=== PATIENT | female | born 2000 | race Hispanic/Latino ===

== ENCOUNTER 2022-04-26 20:52 | Emergency (ER) | payer OTHER ==
[~2022-04-26] VITALS: Ht 157.5 cm; Wt 62.1 kg
[2022-04-26 21:49] LABS: APPEARANCE,URINE CLEAR (CLEAR); BILIRUBIN,URINE NEGATIVE (NEGATIVE); COLOR,URINE YELLOW (YELLOW); GLUCOSE, URINE (UA) NEGATIVE (NEGATIVE); KETONES,URINE NEGATIVE (NEGATIVE); LEUKOCYTE ESTERASE ,URINE NEGATIVE (NEGATIVE); NITRATE,URINE NEGATIVE (NEGATIVE); OCCULT BLOOD,URINE NEGATIVE (NEGATIVE); PROTEIN,URINE NEGATIVE (NEGATIVE); UROBILINOGEN,URINE 0.2 mg/dL (0.2-1.0)
[2022-04-26 21:50] LABS: HCG,QUALITATIVE URINE NEGATIVE (NEGATIVE)
[2022-04-26] MEDS ORDERED: ONDANSETRON ODT 4MG TAB SL ONE (22:00)
[2022-04-26] MEDS ORDERED: IBUPROFEN 600 MG TABLET PO ONE (22:00)
[2022-04-26 22:12] VITALS: BP 128/84
[2022-04-26] MEDS ORDERED: ONDA4TAB10 PO (23:05)
[2022-04-26] MEDS ORDERED: IBUP-2070 PO (23:05)
== END 2022-04-26 23:13 | disposition home or self-care (01) ==
LOC: EDH 20:52
DX: S06.0X1A Concussion with loss of consciousness of 30 minutes or less, initial encounter (principal); S01.01XA Laceration without foreign body of scalp, initial encounter; Z79.1 Long term (current) use of non-steroidal anti-inflammatories (NSAID); X58.XXXA Exposure to other specified factors, initial encounter; Y93.89 Activity, other specified; Y92.89 Other specified places as the place of occurrence of the external cause; Y99.2 Volunteer activity
CPT/HCPCS: 12001; 70450; 72125; 81003; 81025

== ENCOUNTER 2022-05-05 23:10 | Emergency (ER) | payer OTHER ==
[~2022-05-05] VITALS: Ht 157.5 cm; Wt 59.4 kg
[~2022-05-05 23:10] MED LIST: IBUP-2070 PO; ONDA4TAB10 PO
[2022-05-05 23:12] VITALS: BP 105/61
== END 2022-05-05 23:39 | disposition home or self-care (01) ==
LOC: EDH 23:10
DX: S01.01XD Laceration without foreign body of scalp, subsequent encounter (principal); X58.XXXD Exposure to other specified factors, subsequent encounter; Z79.1 Long term (current) use of non-steroidal anti-inflammatories (NSAID)
CPT/HCPCS: 99281